=== PATIENT | female | born 1960 | race African-American/Black ===

== ENCOUNTER 2016-12-28 04:01 | Emergency (ER) | payer SELFPAY ==
[~2016-12-28] VITALS: Ht 157.5 cm; Wt 70.0 kg
[2016-12-28 04:04] VITALS: BP 170/105; PULSE 105; RESP 18; TEMP 98.1; O2SAT 100
[2016-12-28] MEDS ORDERED: SODIUM CHLOR 0.9% 1000 ML INJ 1,000 ML IV SCH (04:04)
[2016-12-28] MEDS ORDERED: LORazepam 1 MG TAB PO PRN (04:15)
[2016-12-28] MEDS ORDERED: FLUMAZENIL 0.5 MG/5 ML VIAL IV PUSH PRN (04:15)
[2016-12-28] MEDS ORDERED: LORazepam 2 MG/ML VIAL IV PUSH PRN ×4 (04:15)
[2016-12-28] MEDS ORDERED: LORazepam 2 MG TAB PO PRN (04:15)
[2016-12-28] MEDS ORDERED: SODIUM CHLORIDE 0.9% FLUSH 10 ML FLUSH IVF PRN (04:15)
[2016-12-28 04:21] VITALS: BP 163/89; PULSE 101; RESP 18; O2SAT 98
[2016-12-28] MEDS ORDERED: FENO160T PO (04:21)
[2016-12-28] MEDS ORDERED: DAPA1TAB6 PO (04:21)
[2016-12-28] MEDS ORDERED: SERT-132 PO (04:21)
[2016-12-28] MEDS ORDERED: AMLO10TA2 PO (04:21)
[2016-12-28] MEDS ORDERED: POTA10TA8 PO (04:21)
--- NOTE | 2016-12-28 04:29 | PD ---
HPI Chief Complaint: Alcohol/Drug Intoxication Time Seen by Provider: 04:04 Travel History International Travel<30 days: No Contact w/Intl Traveler<30days: No Traveled to known affect area: No History of Present Illness HPI Patient presents the emergency department with complaint of alcohol use, tremors. Patient states that she drinks heavily every day, she is not able to quantify this for me. She was drinking heavily yesterday in celebration of her birthday. She woke up this morning, stating that she felt tremulous, shaky, panicky and anxious. Patient notably tremulous for EMS. Blood glucose garbled. 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 She has history of withdrawal and delirium tremens. Had episodes of dry heaving 2 which improved after Zofran per EMS. PFSH Past Medical History Depression: Yes Diabetes: Yes Patient Takes Glucophage: No Diminished Hearing: No Hypertension: Yes Medical other: Yes (ETOH abuse) Tetanus Vaccination: < 5 Years Influenza Vaccination: Yes ?: Not LMP: none Menopausal: Yes Past Surgical History Surgical History: No Previous Surgery Social History Alcohol Use: Yes ("a lot every day all day") Tobacco Use: No Substance Use: No Allergies-Medications (Allergen,Severity, Reaction): Coded Allergies: Sulfa (Verified Allergy, Unknown, 12/28/16) Reported Meds & Prescriptions Reported Meds & Active Scripts Active Reported Fenofibrate 160 Mg Tab 160 Mg PO DAILY Potassium Chloride CR (Potassium Chloride) 10 Meq Tab 20 Meq PO DAILY Amlodipine (Amlodipine Besylate) 10 Mg Tab 10 Mg PO DAILY Xigduo Xr 24 HR (Dapagliflozin-Metformin ER 24 HR) 5-1,000 Mg Tab 1 Tab PO DAILY Sertraline (Sertraline HCl) 50 Mg Tab 50 Mg PO DAILY Review of Systems Except as stated in HPI: all other systems reviewed are Neg Physical Exam Narrative GENERAL: Well-appearing middle-aged female slightly tremulous in no acute distress SKIN: Focused skin assessment warm/dry. HEAD: Normocephalic. EYES: No scleral icterus. No injection or drainage. ENT: Mucous membranes pink and moist. NECK: Supple CARDIOVASCULAR: Slightly tachycardic with heart rate in the 100s, regular rhythm. No murmur appreciated. RESPIRATORY: No accessory muscle use. GASTROINTESTINAL: Abdomen soft, non-tender, nondistended. MUSCULOSKELETAL: No obvious deformities. No edema. NEUROLOGICAL: Awake and alert. Resting tremor. Motor grossly within normal limits. Normal speech. PSYCHIATRIC: insight and judgment poor Data Data Last Documented VS Vital Signs Date Time Temp Pulse Resp B/P Pulse Ox O2 Delivery O2 Flow Rate FiO2 12/28/16 04:21 101 18 163/89 98 Room Air 12/28/16 04:04 98.1 Orders Basic Metabolic Panel (Bmp) (12/28/16 04:04) Ecg Monitoring (12/28/16 04:04) Iv Access Insert/Monitor (12/28/16 04:04) Oximetry (12/28/16 04:04) Sodium Chloride 0.9% Flush (Ns Flush) (12/28/16 04:15) Sodium Chlor 0.9% 1000 Ml Inj (Ns 1000 M (12/28/16 04:04) Alcohol (Ethanol) (12/28/16 04:04) Complete Blood Count With Diff (12/28/16 04:04) Alcohol Withdrawal Asmt-Ciwa ONCE (12/28/16 04:04) Flumazenil Inj (Romazicon Inj) (12/28/16 04:15) Lorazepam (Ativan) (12/28/16 04:15) Lorazepam Inj (Ativan Inj) (12/28/16 04:15) Lorazepam (Ativan) (12/28/16 04:15) Lorazepam Inj (Ativan Inj) (12/28/16 04:15) Lorazepam Inj (Ativan Inj) (12/28/16 04:15) Lorazepam Inj (Ativan Inj) (12/28/16 04:15) Chlordiazepoxide (Librium) (12/28/16 05:00) Diphenhydramine Inj (Benadryl Inj) (12/28/16 05:00) Metoclopramide Inj (Reglan Inj) (12/28/16 05:00) Labs Laboratory Tests Test 12/28/16 04:10 White Blood Count 6.8 TH/MM3 Red Blood Count 3.77 MIL/MM3 Hemoglobin 11.7 GM/DL Hematocrit 35.4 % Mean Corpuscular Volume 93.9 FL Mean Corpuscular Hemoglobin 31.0 PG Mean Corpuscular Hemoglobin 33.0 % Concent Red Cell Distribution Width 14.6 % Platelet Count 180 TH/MM3 Mean Platelet Volume 9.3 FL Neutrophils (%) (Auto) 68.0 % Lymphocytes (%) (Auto) 23.5 % Monocytes (%) (Auto) 7.5 % Eosinophils (%) (Auto) 0.2 % Basophils (%) (Auto) 0.8 % Neutrophils # (Auto) 4.6 TH/MM3 Lymphocytes # (Auto) 1.6 TH/MM3 Monocytes # (Auto) 0.5 TH/MM3 Eosinophils # (Auto) 0.0 TH/MM3 Basophils # (Auto) 0.1 TH/MM3 CBC Comment DIFF FINAL Differential Comment Sodium Level 138 MEQ/L Potassium Level 3.8 MEQ/L Chloride Level 106 MEQ/L Carbon Dioxide Level 17.3 MEQ/L Anion Gap 15 MEQ/L Blood Urea Nitrogen 6 MG/DL Creatinine 0.60 MG/DL Estimat Glomerular Filtration 103 ML/MIN Rate Random Glucose 99 MG/DL Calcium Level 8.2 MG/DL Ethyl Alcohol Level 136 MG/DL [facility] Medical Decision Making Medical Screen Exam Complete: Yes Emergency Medical Condition: Yes Medical Record Reviewed: Yes Differential Diagnosis 56-year-old female alcoholic here with complaint of tremors, nausea since drinking heavily yesterday. Differential includes alcohol intoxication, withdrawal, delirium tremens, electrolyte abnormality, dehydration. Narrative Course Patient placed on monitor, IV established and blood obtained. Given 1 L normal saline bolus and placed on CIWA protocol, given 2mg IV ativan initially. CBC, BMP, blood alcohol level notable for blood alcohol level 136. Patient still nauseous, given Benadryl, Reglan with improvement of her symptoms. Able to tolerate liquids and will be discharged home. Symptoms consistent with acute alcohol intoxication. Diagnosis Primary Impression: Alcohol intoxication in active alcoholic Qualified Code: F10.120 - Alcohol intoxication in active alcoholic, uncomplicated Referrals: [facility] for appointment Additional Instructions: Seek outpatient management for her alcoholism. Med/Other Pt SpecificInfo: No Change to Meds Disposition: 01 DISCHARGE HOME Condition: Stable Marlene Crawford MD December 28, 2016 04:29
[2016-12-28 04:40] LABS: AUTOMATED NEUTROPHIL # 4.6 TH/MM3 (1.8-7.7); BASOPHIL # 0.1 TH/MM3 (0-0.2); BASOPHIL % 0.8 % (0.0-2.0); EOSINOPHIL % 0.2 % (0.0-4.0); HEMATOCRIT 35.4 % (35.0-46.0); HEMO FLAGS DIFF FINAL; LYMPH % 23.5 % (9.0-44.0); LYMPHOCYTE # 1.6 TH/MM3 (1.0-4.8); MEAN CELL VOLUME 93.9 FL (80.0-100.0); MONO % 7.5 % (0.0-8.0); PLATELET COUNT 180 TH/MM3 (150-450); RED BLOOD COUNT 3.77 MIL/MM3 (4.00-5.30); RED CELL DISTRIBUTION WIDTH 14.6 % (11.6-17.2); WHITE BLOOD COUNT 6.8 TH/MM3 (4.0-11.0)
[2016-12-28 04:49] LABS: BICARBONATE 17.3 MEQ/L (21.0-32.0); POTASSIUM 3.8 MEQ/L (3.5-5.1)
[2016-12-28] MEDS ORDERED: METOCLOPRAMIDE HCL 10 MG/2 ML VIAL IVP ONE (05:00)
[2016-12-28] MEDS ORDERED: diphenhydrAMINE HCL 50 MG/ML VIAL IVP ONE (05:00)
[2016-12-28 06:04] VITALS: BP 128/67; PULSE 112; RESP 18; O2SAT 100
== END 2016-12-28 07:39 | disposition home or self-care (01) ==
LOC: NEPE 04:01
DX: F10.120 Alcohol abuse with intoxication, uncomplicated (principal); R11.0 Nausea; E11.9 Type 2 diabetes mellitus without complications; I10 Essential (primary) hypertension; Z79.84 Long term (current) use of oral hypoglycemic drugs; Z86.59 Personal history of other mental and behavioral disorders
CPT/HCPCS: 80048; 80307; 85025; 96374; 96375; 99284; J1200; J2060; J2765; J7030